=== PATIENT | female | born 1990 | race Caucasian/White ===

== ENCOUNTER 2019-05-13 16:22 | Outpatient (CLI) | payer BC, MEDICAID, SELFPAY ==
[2019-05-13 17:39] LABS: HIV 1/2 Ab P24 Ag Result Negative (Negative)
== END 2019-05-13 16:23 | disposition home or self-care (01) ==
PROVIDERS: PCP Family Medicine; Visit Provider Physician Assistant
DX: Z11.4 Encounter for screening for human immunodeficiency virus [HIV] (principal)
CPT/HCPCS: 36415; 86703; G0432

== ENCOUNTER 2020-06-08 14:39 | Outpatient (CLI) | payer BC, MEDICAID, SELFPAY ==
[2020-06-08 16:26] LABS: Free T4 Free Thyroxine 1.34 ng/mL (0.78-2.19)
== END 2020-06-08 14:40 | disposition home or self-care (01) ==
PROVIDERS: PCP Family Medicine; Visit Provider Physician Assistant
DX: E03.9 Hypothyroidism, unspecified (principal)
CPT/HCPCS: 36415; 84439; 84443

== ENCOUNTER → 2021-04-27 07:42 | Outpatient (CLI) | payer BC, MEDICAID, SELFPAY ==
[2021-04-27 18:37] LABS: Influenza A QL RT-PCR Negative (Negative); Influenza B QL RT-PCR Negative (Negative); SARS-CoV-2 RNA PCR Negative
== END ==
PROVIDERS: PCP Family Medicine; Visit Provider Physician Assistant
DX: R50.9 Fever, unspecified (principal); Z20.822 Contact with and (suspected) exposure to COVID-19
CPT/HCPCS: 87502; 87804; C9803; U0003; U0005

== ENCOUNTER 2022-09-26 15:39 | Outpatient (CLI) | payer OTHER, MEDICAID, SELFPAY ==
--- NOTE | ~2022-09-26 | XR_ITS ---
EXAM: XR femur RT min 2V, XR femur LT min 2V DATE: 09/26/2022 16:04 (accession [id number]), 09/26/2022 16:06 (accession [id number]) HISTORY: W19.XXXA - Unspecified fall, initial encounter . COMPARISON: None available. FINDINGS: Normal mineralization. No fracture or dislocation. No lytic or blastic lesion. Osteitis pu bis. Mild bilateral hip osteoarthritis. No erosion or periosteal change. Soft tissues within normal l imits. IMPRESSION: No acute osseous finding in the right or left femur. Reviewed, dictated and finalized at location K. IMPRESSION: No acute osseous finding in the right or left femur.
--- NOTE | ~2022-09-26 | XR_ITS ---
EXAM: XR knee LT 3V DATE: 09/26/2022 16:05 HISTORY: W19.XXXA - Unspecified fall, initial encounter . COMPARISON: None available. FINDINGS: Normal mineralization. No fracture or dislocation. No lytic or blastic lesion. Mild left k nee osteoarthritis. No erosion or periosteal change. Soft tissues within normal limits. IMPRESSION: No acute osseous finding in the left knee. Reviewed, dictated and finalized at location K.
--- NOTE | ~2022-09-26 | XR_ITS ---
XR sacrum coccyx min 2V DATE: 09/26/2022 16:04 INDICATION: Fall. Sacral injury, pain TECHNIQUE: AP, angled AP and lateral views COMPARISON: None FINDINGS: The pubic symphysis and sacral iliac joints are intact. No sacral or coccygeal fracture or bone destruction is detected. Included L4-5 and L5-S1 interspaces are well preserved. IMPRESSION: Negative Reviewed, dictated and finalized at location A. IMPRESSION: Negative
--- NOTE | ~2022-09-26 | XR_ITS ---
XR knee RT 3V 09/26/2022 16:05 INDICATION: Right knee pain PROCEDURE: 3 views right knee COMPARISON: No prior studies for comparison. FINDINGS: Fracture, dislocation or subluxation is not identified. No significant joint effusion. The soft tissues appear within normal limits. No foreign bodies are identified. IMPRESSION: 1: NO ACUTE BONE OR JOINT ABNORMALITY IDENTIFIED. Reviewed, dictated and finalized at location []
== END 2022-09-26 15:40 | disposition home or self-care (01) ==
LOC: ANHIMG 15:41
PROVIDERS: PCP Family Medicine; Visit Provider Family Medicine
DX: R52 Pain, unspecified (principal)
CPT/HCPCS: 72220; 73552; 73562

== ENCOUNTER 2022-09-27 18:05 | Inpatient (IN) | payer OTHER, MEDICAID, SELFPAY ==
[2022-09-27] VITALS (19 sets, daily range): BP systolic 125–146; BP diastolic 87–104; PULSE 77–98; RESP 14–20; TEMP 36.7–36.9; O2SAT 96–98; BMI 26.7
--- NOTE | ~2022-09-27 | CT_ITS ---
EXAMINATION: CTA brain carotid DATE: 09/27/2022 20:34 CDT INDICATION: Left facial droop and arm weakness. TECHNIQUE: Computed tomographic angiography (CTA) of the head was performed without and with 100 mL O mnipaque-350 intravenous contrast. CTA of the neck was performed with intravenous contrast. The dose- length product was 1455.69 mGy-cm. Maximum intensity projection and volume rendered 3D-reconstruction s were created by the technologist on a separate workstation. COMPARISON: None. FINDINGS: HEAD CTA: There is moderate-severe stenosis at the origin of the right middle cerebral artery. The an terior, left middle and posterior cerebral arteries are symmetric. There are ill-defined areas of lin graphic hypodensity involving the right basal ganglia including the caudate nucleus and lentiform nuc leus as well as subtle ill-defined areas of decreased density in the right posterior parietal lobe, s uspicious for acute/subacute infarction. No significant mass effect or hemorrhage. Paranasal sinuses and mastoids are pneumatized. Normal brain parenchymal volume for age. No midline shift. NECK CTA: The vertebral arteries are normal in course and caliber. The vertebral arteries are codomin ant. Study somewhat limited due to motion. Mildly prominent submandibular lymph nodes are likely reac tive.% There is 0% stenosis of the proximal right internal carotid artery relative to normal distal artery l umen diameter (NASCET criteria). There is 0%stenosis of the proximal left internal carotid artery rel ative to normal distal artery lumen diameter. IMPRESSION: 1: Geographic areas of hypodensity involving the right basal ganglia and right posterior parietal lo bes, suspicious for acute or subacute infarctions. No significant mass effect or associated hemorrhag e. 2: Moderate-severe stenosis at the origin of the right middle cerebral artery. Dr. Jackson Kennedy discussed with Dr. Juli Palmer MD at 09/27/2022 20:41 CDT. Reviewed, dictated and finalized at location A. IMPRESSION: 1: Geographic areas of hypodensity involving the right basal ganglia and right posterior parietal lobes, suspicious for acute or subacute infarctions. No sig nificant mass effect or associated hemorrhage. 2: Moderate-severe stenosis at the origin of the right middle cerebral artery. Dr. Jackson Kennedy discussed with Dr. Juli Palmer MD at 09/27/2022 20:41 CDT.
--- NOTE | ~2022-09-27 | XR_ITS ---
XR chest 1V portable 09/27/2022 20:05 Indication: Left-sided weakness. Procedure: AP portable chest Comparison: 11/18/2012 Findings: Shallow inspiration with crowding of the pulmonary vessels. No focal pneumonia, pleural eff usion or pneumothorax. No acute osseous abnormality. Impression: 1: No acute cardiopulmonary disease. Reviewed, dictated and finalized at location A. Impression: 1: No acute cardiopulmonary disease.
--- NOTE | ~2022-09-27 | MR_ITS ---
EXAMINATION: MR brain/brain stem wo/w con DATE: 09/28/2022 11:52 INDICATION: Subacute CVA TECHNIQUE: Magnetic resonance imaging (MRI) of the brain and brainstem was performed without intraven ous contrast. Sequences included sagittal and axial T1-weighted SE, axial diffusion-weighted FS SE, a xial T2*-weighted GRE, axial T2-weighted FLAIR Propeller, and axial T2-weighted Propeller. Apparent d iffusion coefficient (ADC) maps were created. COMPARISON: CTA brain/carotid dated 09/27/2037. FINDINGS: There is diffusion restriction compatible with acute/subacute infarction involving the righ t caudate nucleus and lentiform nucleus. No evidence for intracranial hemorrhage. Orbits are symmetri c without disconjugate gaze. No ventriculomegaly or midline shift. Paranasal sinuses are unremarkable . There are chronic infarctions involving the right parietal lobe posteriorly. No significant diffusi on restriction is seen to suggest these areas of infarction or acute or subacute. No gradient suscept ibility effect. No abnormal contrast enhancement. IMPRESSION: 1. Acute/subacute infarctions of the right caudate and lentiform nuclei. 2: Chronic multifocal infarctions of the right parietal lobe. Reviewed, dictated and finalized at location A.
--- NOTE | 2022-09-27 19:15 | ECG_ITS ---
Measurements Intervals [place] Rate: 83 P: 56 VT: 156 QRS: 69 QRSD: 75 T: 34 QT: 367 QTc: 433 Interpretive Statements SINUS RHYTHM POSSIBLE LEFT ATRIAL ENLARGEMENT [-0.1mV P-WAVE IN V1/V2] ABNORMAL ECG NO PREVIOUS ECG AVAILABLE FOR COMPARISON Electronically Signed On 09-28-2022 9:11:31 CDT by Jonathan Quinteros M.D.
--- NOTE | 2022-09-27 19:17 | ED.NEUROSD ---
HPI - Neuro Symptoms/Deficit General Chief Complaint: Neuro Symptoms/Deficit Stated Complaint: left sided weakness/numbness since Thursday? Time Seen by Provider: 09/27/22 19:04 History of Present Illness HPI Narrative: Sister visited today and noticed patient was not running to meet/hug her like usual, then noticed her face was droopy and she wasn't able to move her left arm (would use her right arm to move her left). Mom states she thinks these symptoms started on Thursday. Other than this, patient not complaining of any pain or any complaints, other than she did have some possible left knee pain that she got x-rays for yesterday, but is not complaining of that now. Related Data Home Medications Medication Instructions Recorded Confirmed neomycin 3.5 mg/g-polymyxin B 1 applic EACH EYE Q6H 06/18/21 03/21/22 10,000 unit/g-dexameth 0.1 % eye oint Allergies Allergy/AdvReac Type Severity Reaction Status Date / Time tobramycin Allergy Mild Rash Verified 09/27/22 18:06 cefixime Allergy Unknown Unknown Verified 09/27/22 18:06 Review of Systems Review of Systems: Patient denies complaints including pain anywhere, recent fevers PMFSH Past Medical History Medical History Down syndrome Duodenal atresia (~1991) Hypothyroidism Skin lesion of right lower extremity Surgical History Surgical History History of placement of ear tubes (~1995) Hx of tonsillectomy (~1997) Family History Family History Mother Patient's mother is in good health Social History Social History Smoking status: Never smoker Second hand tobacco smoke exposure: No Alcohol intake: never Substance use: never Substance use type: does not use Lack of Transportation: No Lack of Food: Never True Current Housing: I Have Housing Concerned About Future Housing: No Difficulty Paying Gas/Electric Bills: No Difficulty Paying for Meds: No Currently Unemployed: Decline to Answer Education: High School Diploma/GED Difficulty w/ Childcare or Family Care: No Living arrangements: with family Gender identity (if verbalized by the patient): Female Spiritual care concerns: No Agree to blood products: Yes Exam Narrative: EXAMINATION OF ORGAN SYSTEMS/BODY AREAS: Constitutional: Vital signs per nursing GENERAL:[No acute distress, non-toxic appearing.] Sitting comfortably in bed. HEAD: Normal with no signs of head trauma. EYES: EOMI, PERRL, left eye is red ENT: Left-sided facial droop; forehead spared LUNGS: Nonlabored breathing. HEART: [Regular rate and rhythm] ABD: [Soft], patient states a little when asked if painful on palpation but does not wince at all EXT: Able to move left arm against gravity but noticeably weak compared to right. Normal movement bilateral lower extremities, painless flexion at knee SKIN: [No rashes or lesions.] NEURO: [Alert and oriented x 3. No gross focal sensory or strength deficits.] PSYCH: Normal affect Course Vital Signs Vital signs: Vital Signs Temperature 98.1 F 09/27/22 18:07 Pulse Rate 96 09/27/22 18:07 Respiratory Rate 18 09/27/22 18:07 Blood Pressure 132/87 09/27/22 18:07 Pulse Oximetry 96 09/27/22 18:07 Oxygen Delivery Room Air 09/27/22 18:07 Temperature 98.1 F 09/27/22 18:07 Pulse Rate 96 09/27/22 18:07 Respiratory Rate 18 09/27/22 18:07 Blood Pressure 132/87 09/27/22 18:07 Pulse Oximetry 96 09/27/22 18:07 Oxygen Delivery Room Air 09/27/22 18:07 MDM - Neuro Symptoms/Deficit MDM Narrative Medical decision making narrative: 32-year-old female with history of Down syndrome presents after sister noted facial droop and arm weakness, mother states this has been ongoing for days. Patient denies any complaints; on exam has L
[2022-09-27 19:38] LABS: Basophils Absolute Auto 0.1 K/mm3 (0.0-0.1); Eosinophils Percent Auto 0.1 % (0-4.4); Hemoglobin 17.2 g/dL (12.0-15.0); Immature Granulocyte Absolute 0.05 K/mm3 (0.00-0.031); Immature Granulocyte Percent A 0.5 % (0-0.5); Lymphocytes Absolute Auto 1.77 K/mm3 (0.9-3.2); Lymphocytes Percent Auto 17.2 % (18.3-44.2); Mean Corpuscular HGB Conc 33.7 g/dl (32-36); Mean Corpuscular Hemoglobin 31.9 pg (26-34); Mean Corpuscular Volume 94.6 fl (80-100); Mean Platelet Volume 9.1 fl (7.4-10.4); Monocytes Absolute Auto 0.7 K/mm3 (0.1-0.6); Monocytes Percent Auto 6.3 % (2.6-8.5); Neutrophils Absolute Auto 7.7 K/mm3 (1.3-6.7); Neutrophils Percent Auto 74.9 % (45.5-73.1); Platelet Count Result 437 k/mm3 (150-375); Red Blood Count 5.39 M/mm3 (4.2-5.4); Red Cell Distribution Width 13.9 % (11.5-14.5); White Blood Count 10.3 K/mm3 (4.5-10.0)
[2022-09-27 19:39] LABS: Appearance Urine Clear (Clear); Bacteria Urine None Seen /hpf; Bilirubin Urine Negative (Negative); Blood Urine Negative (Negative); Color Urine Dark Yellow (Yellow); Glucose Urine UA Negative (Negative); Ketones Urine 4+ mg/dL (Negative); Leukocyte Esterase Ur Trace LEU/UL (Negative); Nitrate Urine Negative (Negative); Non Pathogenic Casts 0-2; Protein Urine 2+ mg/dL (Negative); RBC Urine 0-2 /hpf (0-2); Squamous Epithelial Cell Urine Occasional /hpf (Few); pH Urine 5.5 (5.0-9.0)
[2022-09-27 19:40] LABS: Add Urine Microscopic? YES
[2022-09-27 19:50] LABS: Barbiturate Screen Urine Negative (Negative)
[2022-09-27 19:50] LABS: Partial Thromboplastin Time 26.8 SECONDS (22.3-36.8); Prothrombin Time 13.9 Seconds (11.1-14.7)
[2022-09-27 19:53] LABS: Amphetamine Screen Urine Negative (Negative); Cannabinoid Screen Urine Negative (Negative); Cocaine Screen Urine Negative (Negative); Methadone Screen Urine Negative (Negative); Opiate Screen Urine Negative (Negative); Phencyclidine Screen Urine Negative (Negative)
[2022-09-27 19:55] LABS: Alanine Aminotransferase 40 U/L (6-35); Albumin Level 4.9 g/dL (3.5-5.1); Alkaline Phosphatase 116 U/L (38-126); Anion Gap 19 mmol/L (8-16); Aspartate Amino Transferase 38 U/L (14-36); Bilirubin,Total 0.9 mg/dL (0.2-1.3); Blood Urea Nitrogen 16 mg/dL (7-17); Calcium 9.6 mg/dL (8.4-10.2); Carbon Dioxide 14 mmol/L (22-30); Chloride 105 mmol/L (98-107); Estimated CRCL calculation 75 ml/min; Estimated Glomerular Filt Rate > 60; Ethanol < 10 mg/dL (<10); Glucose 72 mg/dL (65-110); Potassium 4.2 mmol/L (3.4-5.0); Sodium 138 mmol/L (137-145)
[2022-09-27 20:06] LABS: Troponin I < 0.012 ng/mL (0.000-0.034)
[2022-09-27 20:18] LABS: Benzodiazepines Screen Urine Negative (Negative)
[2022-09-27] MEDS: LACTATED RINGERS 1,000 ML 999 ML IV CONT (20:39)
--- NOTE | 2022-09-27 22:32 | PC.NURSE ---
family to bring in full medication list tomorrow takes several vitamin unknown strengthen
--- NOTE | 2022-09-27 22:38 | PM.IMHP ---
H&P: HPI History of Present Illness Date/Time: 09/27/22 22:30 Chief Complaint: Left-sided weakness. Narrative: This is a pleasant 32-year-old female with Down syndrome and hypothyroidism who presented to the emergency department via private vehicle from home for evaluation of left-sided weakness. She is a fair historian and her mother and sister provide additional history, with the patient's permission. She has been complaining of her left leg and knee feeling weird since Thursday and she had outpatient radiographs done yesterday of her lower extremities which did not show any acute findings. Today her sister came to visit and she thought it was strange at the patient did not run in hold her like she would normally. Instead she seemed to be walking slowly and sister noticed that the left side of her face was drooping. Mother did not notice the drooping of the face but she did notice that the patient had difficulties using her left arm on Thursday however she thought she was trying to imitate her. Vital signs were stable on arrival to the ED. pertinent labs include a WBC count of 10.3, hemoglobin 17.2, hematocrit 51%, sodium 138, potassium 4.2, carbon dioxide 14, anion gap 19, BUN 16, creatinine 0.80, AST 38, ALT 40, total protein 9.. Urine was positive for 2+ protein and 4+ ketones. Urine drug screen was negative. CTA of the head and neck per [facility] showed findings concerning for subacute infarcts with occlusion of the right MCA though she had collateral vessels. ED physician spoke with Dr. Pack who recommends putting patient in the hospital for brain MRI as she has had symptoms since Thursday. At the time of my evaluation the patient is sitting up and watching television while eating a sandwich. She mentions that she bit her tongue once while eating a couple of days ago and that she did not really eat much last couple of days because of that however she is feeling better in that regard. She denies vertigo, paresthesias, visual changes, difficulty swallowing, difficulty speaking, chest pain, palpitations, sensations of racing heart. No recent cold or flu symptoms. Review of Systems Review of Systems: Twelve systems were reviewed and are negative except for as per HPI. [facility] Past Medical History Medical History Down syndrome Duodenal atresia (~1991) Hypothyroidism Surgical History Surgical History (Updated 09/27/22 @ 22:41 by Yeimy Willis PA-C) History of placement of ear tubes (1995) History of tonsillectomy (1997) Family History Family History Mother Patient's mother is in good health Social History Social History (Updated 09/27/22 @ 22:42 by Yeimy Willis PA-C) Social History: Surrogate medical decision maker: Chaya and Lemuel Cabrera, parents. Code status: Full code. Smoking status: Never smoker Second hand tobacco smoke exposure: No Alcohol intake: never Substance use: never Substance use type: does not use Lack of Transportation: No Lack of Food: Never True Current Housing: I Have Housing Concerned About Future Housing: No Difficulty Paying Gas/Electric Bills: No Difficulty Paying for Meds: No Currently Unemployed: Decline to Answer Education: High School Diploma/GED Difficulty w/ Childcare or Family Care: No Additional living arrangements comments: Lives with family in [place]. Additional occupation/education comments: Disabled. Spiritual care concerns: No Agree to blood products: Yes Meds Home Medications and Allergies Home Medications Medication Instructions Recorded Confirmed Type neomycin 3.5 mg/g-polymyxin B 1 applic EACH EYE Q6H 06/18/21 03/21/22 History 10,000 unit/g-dexameth 0.1 % eye oint levothyroxine 75 mcg tablet 75 mcg PO DAILY #90 tabs 09/14/21 03/21/22 Rx Allergies Allergy/AdvReac Type Severity Reaction Status Date
[2022-09-27] MEDS: CLOPIDOGREL BISULFATE 75 MG TABLET PO (23:23)
[2022-09-27] MEDS: DEXTROSE 5%/0.9% SOD CHL 1,000 ML 100 ML IV CONT (23:23)
[2022-09-27] MEDS: ATORVASTATIN 40 MG TABLET PO (23:23)
[2022-09-27 23:46] LABS: Anion Gap 10 mmol/L (8-16); Blood Urea Nitrogen 16 mg/dL (7-17); Calcium 8.8 mg/dL (8.4-10.2); Carbon Dioxide 21 mmol/L (22-30); Chloride 105 mmol/L (98-107); Cholesterol 229 mg/dL (0-200); Estimated CRCL calculation 74 ml/min; Estimated Glomerular Filt Rate > 60; Glucose 144 mg/dL (65-110); HDL Direct 23 mg/dL; Magnesium 1.8 mg/dL (1.6-2.3); Phosphorus 3.3 mg/dL (2.5-4.5); Sodium 136 mmol/L (137-145); Triglycerides 91 mg/dL (<150)
[2022-09-27 23:51] LABS: Beta-Hydroxybutyrate/Acetoacetate 1.05 mmol/L (0.02-0.27)
[2022-09-27 23:56] LABS: LDL Cholesterol Direct 189 mg/dL
[2022-09-28 00:19] LABS: Thyroid Stimulating Hormone Reflex 0.698 uIU/mL (0.465-4.68)
--- NOTE | 2022-09-28 04:53 | PC.NURSE ---
This patient, Danette Cabrera, was admitted to [address] [facility] Surg Room 323-02. Patient/family oriented to hospital policies and general routines including ID bracelet, bed and alarms, visiting hours, pain management, procedures, bathroom and other care routines, personal items, smoking policy, room service/diet, and visiting hours. Information on how to activate the Rapid Response Team has been discussed. Patient/Family are encouraged to report perceived risks to care and to ask questions if they do not understand what they are told or what they should do. pt arrived at [id number]
[2022-09-28 06:00] VITALS: BP 140/87; PULSE 78; RESP 16; TEMP 36.6; O2SAT 95
[2022-09-28 06:40] LABS: Hematocrit 42.3 % (37.0-47.0); Hemoglobin 14.3 g/dL (12.0-15.0); Mean Corpuscular HGB Conc 33.8 g/dl (32-36); Mean Corpuscular Hemoglobin 31.8 pg (26-34); Mean Platelet Volume 9.2 fl (7.4-10.4); Platelet Count Result 366 k/mm3 (150-375); Red Cell Distribution Width 13.7 % (11.5-14.5); White Blood Count 9.5 K/mm3 (4.5-10.0)
[2022-09-28 06:57] LABS: Anion Gap 7 mmol/L (8-16); Blood Urea Nitrogen 15 mg/dL (7-17); Calcium 8.1 mg/dL (8.4-10.2); Carbon Dioxide 20 mmol/L (22-30); Chloride 110 mmol/L (98-107); Estimated CRCL calculation 84 ml/min; Estimated Glomerular Filt Rate > 60; Glucose 116 mg/dL (65-110); Potassium 3.7 mmol/L (3.4-5.0); Sodium 137 mmol/L (137-145)
[2022-09-28 08:00] VITALS: O2SAT 96
[2022-09-28 08:09] VITALS: O2SAT 96
[2022-09-28] MEDS: ASPIRIN 81 MG CHEWABLE TABLET PO (08:42)
--- NOTE | 2022-09-28 12:18 | PCPTNOTE ---
On 09/28/22, the student, [Pinky Hart], provided care and completed [facility] documentation on this patient. I have reviewed the student's documentation and agree with the findings.
--- NOTE | 2022-09-28 12:56 | WPDNEURCNPN ---
Assessment and Plan Assessment and plan (1) Stenosis of right middle cerebral artery: Code(s): I66.01 - Occlusion and stenosis of right middle cerebral artery Status: Acute (2) Cerebrovascular accident: Code(s): I63.9 - Cerebral infarction, unspecified Status: Acute (3) Down syndrome: Code(s): Q90.9 - Down syndrome, unspecified Status: Acute Plan 1. Right hemispheric the stroke documented by CTA though MRI is pending. Stroke involves the basal ganglia and right posterior parietal lobe in addition she has been noted to have moderate to severe stenosis of the origin of the right middle cerebral artery. Patient is receiving aspirin 81 mg daily and Plavix 75 mg daily in addition to atorvastatin 40 mg daily will obtain the surface echocardiogram before any further steps are taken. Consult date: 09/28/22 HPI: Danette Cabrera is a 32 year old femaleAdmitted to the hospital with the complaints of left-sided weakness along with the numbness since Thursday. Her sister visited today she came to the emergency room and noted that she was not running to meet and hug her like usual and she also noted her face was droopy and she was unable to move her left upper extremity and were using right upper extremity more than the left the symptoms probably started on Thursday but otherwise she was not complaining of any problem he did have some left knee pain for which x-rays were taken day before visit to the emergency room. But she was not complaining of any pain in the knee as well . Is allergic to tobramycin and cefixime. He carries the diagnosis of Down syndrome with duodenal atresia and hypothyroidism and has undergone local surgery for the placement of the ear tubes in 1995 in addition to tonsillectomy in 1997. She does not drink does not smoke initial exam in the Emergency Room documented left upper extremity weakness compared to the right side vital signs were normal. Evaluation documented hemoglobin of 17.2 she had the CTA which documented hypodensities in the right caudate head and basal ganglia along with the occlusion of the right middle cerebral artery with collateral vessels EKG did not reveal any atrial fibrillation CBC was normal except hemoglobin only 10.3 and WBC 17.2 with platelet 437 drug screen was negative Review of Systems Review of Systems: All systems reviewed & are unremarkable except as noted in HPI and below PMFSH Past Medical History Medical History Down syndrome Duodenal atresia (~1991) Hypothyroidism Surgical History Surgical History (Updated 09/27/22 @ 22:41 by Yeimy Willis PA-C) History of placement of ear tubes (1995) History of tonsillectomy (1997) Family History Family History Mother Patient's mother is in good health Social History Social History (Updated 09/27/22 @ 22:42 by Yeimy Willis PA-C) Social History: Surrogate medical decision maker: Chaya and Lemuel Cabrera, parents. Code status: Full code. Smoking status: Never smoker Second hand tobacco smoke exposure: No Alcohol intake: never Substance use: never Substance use type: does not use Lack of Transportation: No Lack of Food: Never True Current Housing: I Have Housing Concerned About Future Housing: No Difficulty Paying Gas/Electric Bills: No Difficulty Paying for Meds: No Currently Unemployed: Decline to Answer Education: High School Diploma/GED Difficulty w/ Childcare or Family Care: No Additional living arrangements comments: Lives with family in [place]. Additional occupation/education comments: Disabled. Spiritual care concerns: No Agree to blood products: Yes Meds Home Medications and Allergies Home Medications Medication Instructions Recorded Confirmed Type levothyroxine 75 mcg tablet 75 mcg PO DAILY #90 tabs 09/14/21
--- NOTE | 2022-09-28 13:22 | PCSTNOTE ---
Bedside swallowing evaluation. Patient's parents and sister present at bedside. Patient positioned upright in bed with head of bed elevated. Oral peripheral examination performed, patient presents with mild left sided decreased lingual and labial range of motion, strength, and coordination. Following simple commands with extra time. Trials of thin liquids, pureed foods by spoon and cup were within normal limits. Patient required extra time to chew solid food. Patient reports that she has decreased sensation in left buccal region. Compensatory strategies trialed included: position upright in bed or in chair, present food and liquid from left side, small bites and sips, decrease distractions, and no straws. Recommended food texture is soft and bite sized, and liquid consistency is thin. No further speech therapy is recommended for this patient. Swallowing precaution recommendations posted in medical chart. Please note that silent aspiration cannot be ruled out at bedside and can only be evaluated with a modified barium swallow study. Thank you for the referral of this patient.
[2022-09-28 14:00] VITALS: BP 113/79; PULSE 72; RESP 16; TEMP 36.4; O2SAT 98
--- NOTE | 2022-09-28 15:33 | PM.IMPN ---
Progress Note: A&P Assessment and Plan (1) Cerebrovascular accident: Code(s): I63.9 - Cerebral infarction, unspecified Status: Acute Assessment and Plan: Appreciate neurology consultation, follow-up echo and MRI (2) Stenosis of right middle cerebral artery: Code(s): I66.01 - Occlusion and stenosis of right middle cerebral artery Status: Acute Assessment and Plan: Appreciate neurology consultation and management (3) Ketosis: Code(s): E88.89 - Other specified metabolic disorders Status: Acute Assessment and Plan: Resolved (4) Dehydration: Code(s): E86.0 - Dehydration Status: Acute Assessment and Plan: Resolved Plan Comorbidity: Down syndrome DVT prophylaxis with SCDs GI prophylaxis not indicated Code status full code Subjective Date/time seen: 09/28/22 15:33 Interval history: Patient is sleeping, discussed with family at bedside. No complaints. Unchanged from admission. Still with facial droop and UE and LE weakness/sensory changes. No overnight events. No fevers, chills, NVD, CP, SOB. Review of Systems Review of Systems: ROS unobtainable: Yes unobtainable due to mental status Exam Narrative: General: No acute distress, sleeping HEENT: Atraumatic, normocephalic, mucous membranes moist CV: Regular rate and rhythm, S1, S2 Lungs: Clear to auscultation bilaterally, no rales or crackles noted, no wheezes, good air entry Abdomen: Soft, nontender, nondistended Extremities: Normal to inspection Skin: No rashes noted, no lesions or wounds seen Psych: Unable to assess Objective Data Vital Signs Vital Signs: Vital Signs - 24 hr 09/27/22 18:07 09/27/22 18:21 09/27/22 18:30 Temperature 98.1 F Pulse Rate 96 98 Respiratory Rate 18 19 Blood Pressure 132/87 Pulse Oximetry 96 Oxygen Delivery Room Air 09/27/22 18:45 09/27/22 19:01 09/27/22 19:02 Temperature Pulse Rate 95 90 Respiratory Rate 15 19 Blood Pressure 146/104 H Pulse Oximetry Oxygen Delivery 09/27/22 19:30 09/27/22 19:45 09/27/22 20:25 Temperature Pulse Rate 91 91 94 Respiratory Rate 19 15 Blood Pressure Pulse Oximetry Oxygen Delivery 09/27/22 20:30 09/27/22 20:45 09/27/22 21:01 Temperature Pulse Rate 84 77 84 Respiratory Rate 16 18 Blood Pressure 132/91 H Pulse Oximetry Oxygen Delivery 09/27/22 21:02 09/27/22 21:33 09/27/22 21:45 Temperature Pulse Rate 81 89 94 Respiratory Rate 17 15 14 Blood Pressure Pulse Oximetry Oxygen Delivery 09/27/22 22:00 09/27/22 22:01 09/27/22 22:46 Temperature 98.5 F Pulse Rate 87 86 87 Respiratory Rate 14 20 16 Blood Pressure 125/88 137/91 H Pulse Oximetry 98 Oxygen Delivery 09/28/22 06:00 09/28/22 08:10 09/28/22 08:24 Temperature 98 F Pulse Rate 78 Respiratory Rate 16 Blood Pressure 140/87 Pulse Oximetry 95 Oxygen Delivery Room Air Room Air 09/28/22 08:09 09/28/22 08:00 09/27/22 22:48 Temperature 98.5 F Pulse Rate 87 Respiratory Rate 16 Blood Pressure 137/91 H Pulse Oximetry 96 96 98 Oxygen Delivery Room Air Room Air Intake/Output Intake/Output: Intake & Output 09/25/22 09/26/22 09/27/22 09/28/22 23:59 23:59 23:59 23:59 Intake Total 1000 0 Output Total 200 Balance 1000 -200 Meds/Results Medications: Active Medications Generic Name Dose Route Start Last Admin Trade Name Freq PRN Reason Stop Dose Admin Acetaminophen 650 mg 09/27/22 22:55 Acetaminophen 325 Mg Tablet PO Q6H PRN Mild Pain (1-3) or Fever Aspirin 81 mg 09/28/22 08:00 09/28/22 08:42 Aspirin 81 Mg Chewable Tablet PO 81 mg DAILY@0800 DEON Administration Perflutren Lipid Microsphere 0 ml 09/27/22 22:55 Perflutren Lipid Microspheres 1.5 Ml Vial Diluted To 10 Ml Total Volume IV PUSH 09/29/22 22:57 ONCE PRN adequate visualization
[2022-09-28 20:00] VITALS: PULSE 68; RESP 18; O2SAT 97
[2022-09-28 20:40] VITALS: BP 135/86; PULSE 68; RESP 18; TEMP 36.3; O2SAT 97
--- NOTE | 2022-09-29 | ECHO_ITS ---
Patient Info Name: Danette Cabrera Age: 32 years : 1990 Gender: Female Ht: 60 in Wt: 137 lbs BSA: 1.64 m2 HR: 68 bpm BP: 118 / 87 mmHg Heart Rhythm: Sinus Rhythm Technical Quality: Fair Exam Date: 09/29/2022 2:01 PM Exam Location: [facility] Pulmonary Exam Room: 323 Patient Status: Inpatient Admit Date: 09/27/2022 Staff Ordering Physician: Yeimy Willis PA-C Head Host/Hostess: Lacy Camejo RDCS Attending Provider: Kennedy El MD Referring Physician: Alba KIM; Exam Type: CA echo doppler w bubble study Study Info Indications - CVA Complete two-dimensional, color flow and Doppler transthoracic echocardiogram is performed with agitated saline. Contrast/Agitated Saline Contrast/Ag. Saline: Agitated Saline Amount: 20.00 ml Administered By: Fransisca Ivy RDCS Existing IV Access: Yes IV Access Condition: patent with no signs of infiltration Summary 1. Unremarkable 2D/Doppler echocardiogram. 2. Saline contrast injection shows no evidence of intracardiac shunt. Left Ventricle Left ventricular chamber dimension is normal. Left ventricular systolic function is normal, estimated at 65-70%. The left ventricular diastolic function is normal. Right Ventricle Right ventricular chamber dimension is normal. Left Atria Left atrial chamber dimension is normal. Right Atria Right atrial chamber dimension is normal. Atrial Septum Intact interatrial septum visualized by agitated saline imaging. Aortic Valve The aortic valve is normal. Pulmonic Valve The pulmonic valve is normal. Mitral Valve The mitral valve has normal leaflets. Tricuspid Valve The tricuspid valve leaflets are normal. Pericardium/Pleural The pericardium appears normal. Aorta The aortic root size at the sinus of Valsalva is normal. Left Ventricular Outflow Tract Name Value Normal LVOT 2D LVOT Diameter 2.0 cm LVOT Doppler LVOT Peak Gradient 5 mmHg LVOT Mean Gradient 3 mmHg LVOT VTI 21 cm LVOT VTI/AV VTI Ratio 1.1 LVOT Stroke Volume 65 ml LVOT CO 13.7 l/min LVOT CI 8.3 l/min/m2 Pulmonic Valve Name Value Normal RVOT Doppler RVOT Peak Gradient 3 mmHg PV Doppler PV Peak Gradient 4 mmHg Mitral Valve Name Value Normal MV Doppler MV Decel [place] 452 cm/s2 MV PHT 51 ms
[2022-09-29] MEDS: LEVOTHYROXINE SODIUM 75 MCG TABLET PO (05:47)
[2022-09-29 06:00] VITALS: BP 118/87; PULSE 60; RESP 18; TEMP 36.5; O2SAT 99
[2022-09-29] MEDS: ASPIRIN 81 MG CHEWABLE TABLET PO (08:18)
[2022-09-29] MEDS: ASCORBIC ACID 500 MG TABLET PO (08:18)
[2022-09-29] MEDS: CYANOCOBALAMIN 1,000 MCG TABLET 1000 MCG PO (08:18)
[2022-09-29] MEDS: CHOLECALCIFEROL 1,000 UNITS TABLET 1000 UNITS PO (08:19)
[2022-09-29] MEDS: LORATADINE 10 MG TABLET PO (08:19)
[2022-09-29 09:05] VITALS: O2SAT 97
--- NOTE | 2022-09-29 09:59 | PCPTNOTE ---
On 09/29/22, the student, LYDIA Galvan, provided care and completed [facility] documentation on this patient. I have reviewed the student's documentation and agree with the findings.
--- NOTE | 2022-09-29 11:06 | WPDNEUROPN ---
Progress Note: A&P Assessment and Plan (1) Cerebrovascular accident: Code(s): I63.9 - Cerebral infarction, unspecified Status: Acute (2) Stenosis of right middle cerebral artery: Code(s): I66.01 - Occlusion and stenosis of right middle cerebral artery Status: Acute (3) Down syndrome: Code(s): Q90.9 - Down syndrome, unspecified Status: Acute (4) Hyperlipidemia: Code(s): E78.5 - Hyperlipidemia, unspecified Status: Acute Plan Ms. Cabrera is a 32 year old female with a history of Down's syndrome presenting due to stroke. Patient initially admitted for complains of left sided weakness and numbness. She had an MRI brain which showed R basal ganglia nfarct and CTA brain/carotid showed severe stenosis of the at the origin of the R MCA. Etiology of stroke is likely vessel to vessel embolism from origin of R MCA to R lenticulostriate arteries. However given history of Down's syndrome, will have to evaluate for cardioembolic etiologies as well as further evaluation with angiography since there is an association with moyamoya syndrome. Additionally, there is a strong family history of miscarriages so will need to also evaluate for hypercoagulability. - Aspirin 81mg daily - Plavix 75mg daily x 3 months - Continue Lipitor 40mg daily - Surface echocardiogram is pending - Will likely need outpatient follow-up with neurointerventionalist for cerebral angiogram - Will check hypercoagulable panel Subjective Date/time seen: 09/29/22 11:06 Interval history: Ms. Cabrera is a 32 year old female with a history of Down's syndrome presenting due to stroke. Patient initially admitted for complains of left sided weakness and numbness. She had an MRI brain which showed R MCA territory infarct and CTA brain/carotid showed severe stenosis of the at the origin of the R MCA. EKG showed sinus rhythm. Her LDL from this admission is 189. Last A1c from March 2022 is 5.3. She has been started on Aspirin 81mg daily, Plavix 75mg daily x 3 months, and Lipitor 40mg daily. Surface echocardiogram is pending. Sister at bedside. Patient had a PFO vs ASD at young age that spontaneously closed. There is family history of miscarriage in patient's two sisters, mother, and maternal aunt. No known history of clotting disorders. Review of Systems Review of Systems: ROS unobtainable: Yes unobtainable due to medical condition Exam Const: General: comfortable and no acute distress Eyes: Pupils: Equal, round and reactive pupils present EOM: EOMs intact bilaterally Resp: Effort & Inspection: normal respiratory effort Neuro: Other: Pupils equal and reactive bilaterally, EOMI, left facial droop. RUE/RLE 5/5. LUE 2/5, LLE 2/5. Following commands, speech is fluent but somewhat difficult to understand. Gait deferred. Extrem: General: normal to inspection Psych: Mental Status: mental status grossly normal Objective Data Vital Signs Vital Signs: Vital Signs - 24 hr 09/28/22 14:00 09/28/22 20:40 09/28/22 20:00 Temperature 36.4 C 36.3 C L Pulse Rate 72 68 68 Respiratory Rate 16 18 18 Blood Pressure 113/79 135/86 Pulse Oximetry 98 97 97 Oxygen Delivery Room Air 09/29/22 06:00 09/29/22 09:05 Temperature 36.5 C Pulse Rate 60 Respiratory Rate 18 Blood Pressure 118/87 Pulse Oximetry 99 97 Oxygen Delivery Room Air Intake/Output Intake/Output: Intake & Output 09/26/22 09/27/22 09/28/22 09/29/22 23:59 23:59 23:59 23:59 Intake Total 1000 240 290 Output Total 600 850 Balance 1000 -360 -560 Meds/Results Medications: Active Medications Generic Name Dose Route Start Last Admin Trade Name Freq PRN Reason Stop Dose Admin Acetaminophen 650 mg 09/27/22 22:55 Acetaminophen 325 Mg Tablet PO Q6H PRN Mild Pain (1-3) or Fever Ascorbic Acid 500 mg 09/29/22 09:00 09/29/22 08:18 Ascorbic Acid 500 Mg Tablet PO 500 mg DAILY DEON Administration Aspirin 81 m
--- NOTE | 2022-09-29 13:54 | PM.IMPN ---
Progress Note: A&P Assessment and Plan (1) Cerebrovascular accident: Code(s): I63.9 - Cerebral infarction, unspecified Status: Acute Assessment and Plan: Appreciate neurology consultation, follow-up echo and MRI Hypercoagulable workup pending (2) Stenosis of right middle cerebral artery: Code(s): I66.01 - Occlusion and stenosis of right middle cerebral artery Status: Acute Assessment and Plan: Appreciate neurology consultation and management (3) Ketosis: Code(s): E88.89 - Other specified metabolic disorders Status: Acute Assessment and Plan: Resolved (4) Dehydration: Code(s): E86.0 - Dehydration Status: Acute Assessment and Plan: Resolved Plan Comorbidity: Down syndrome DVT prophylaxis with SCDs GI prophylaxis not indicated Code status full code Subjective Date/time seen: 09/29/22 13:54 Interval history: Patient is sleeping, discussed with family at bedside. No complaints. Unchanged from admission. Still with facial droop and UE and LE weakness/sensory changes. No changes today. Family states she is still ate baseline mentation with unchanged neuro deficits. No overnight events. No fevers, chills, NVD, CP, SOB. Review of Systems Review of Systems: 12 point review of systems was assessed and was negative except as noted in the HPI Exam Narrative: General: No acute distress, sleeping HEENT: Atraumatic, normocephalic, mucous membranes moist CV: Regular rate and rhythm, S1, S2 Lungs: Clear to auscultation bilaterally, no rales or crackles noted, no wheezes, good air entry Abdomen: Soft, nontender, nondistended Extremities: Normal to inspection Skin: No rashes noted, no lesions or wounds seen Psych: Unable to assess Objective Data Vital Signs Vital Signs: Vital Signs - 24 hr 09/28/22 14:00 09/28/22 20:40 09/28/22 20:00 Temperature 97.6 F 97.4 F L Pulse Rate 72 68 68 Respiratory Rate 16 18 18 Blood Pressure 113/79 135/86 Pulse Oximetry 98 97 97 Oxygen Delivery Room Air 09/29/22 06:00 09/29/22 09:05 Temperature 97.7 F Pulse Rate 60 Respiratory Rate 18 Blood Pressure 118/87 Pulse Oximetry 99 97 Oxygen Delivery Room Air Intake/Output Intake/Output: Intake & Output 09/26/22 09/27/22 09/28/2223 23:59 23:59 23:59 23:59 Intake Total 1000 240 290 Output Total 600 850 Balance 1000 -360 -560 Meds/Results Medications: Active Medications Generic Name Dose Route Start Last Admin Trade Name Freq PRN Reason Stop Dose Admin Acetaminophen 650 mg 09/27/22 22:55 Acetaminophen 325 Mg Tablet PO Q6H PRN Mild Pain (1-3) or Fever Ascorbic Acid 500 mg 09/29/22 09:00 09/29/22 08:18 Ascorbic Acid 500 Mg Tablet PO 500 mg DAILY DEON Administration Aspirin 81 mg 09/28/22 08:00 09/29/22 08:18 Aspirin 81 Mg Chewable Tablet PO 81 mg DAILY@0800 DEON Administration Cyanocobalamin 1,000 mcg 09/29/22 09:00 09/29/22 08:18 Cyanocobalamin 1,000 Mcg Tablet PO 1,000 mcg DAILY DEON Administration Levothyroxine Sodium 75 mcg 09/29/22 06:30 09/29/22 05:47 Levothyroxine Sodium 75 Mcg Tablet PO 75 mcg DAILY@0630 DEON Administration Loratadine 10 mg 09/29/22 09:00 09/29/22 08:19 Loratadine 10 Mg Tablet PO 10 mg DAILY DEON Administration Melatonin 10 mg 09/28/22 18:42 Melatonin 5 Mg Tablet PO HS PRN Insomnia Perflutren Lipid Microsphere 0 ml 09/27/22 22:55 Perflutren Lipid Microspheres 1.5 Ml Vial Diluted To 10 Ml Total Volume IV PUSH 09/29/22 22:57 ONCE PRN adequate visualization Protocol Vitamin D 1,000 units 09/29/22 09:00 09/29/22 08:19 Cholecalciferol 1,000 Units Tablet PO 1,000 units DAILY DEON Administration Radiology Results: ITS Impressions Chest X-Ray 09/27/22 20:09 Impression: 1: No acute cardiopulmonary disease. Head/Neck CTA
[2022-09-29 14:00] VITALS: BP 122/78; PULSE 73; RESP 18; TEMP 36.4; O2SAT 98
[2022-09-29 22:00] VITALS: BP 116/74; PULSE 71; RESP 16; TEMP 36.6; O2SAT 99
[2022-09-30 06:00] VITALS: BP 117/80; PULSE 69; RESP 16; TEMP 36.4; O2SAT 97
[2022-09-30] MEDS: LEVOTHYROXINE SODIUM 75 MCG TABLET PO (06:09)
[2022-09-30] MEDS: ASCORBIC ACID 500 MG TABLET PO (09:35)
[2022-09-30] MEDS: LORATADINE 10 MG TABLET PO (09:35)
[2022-09-30] MEDS: CHOLECALCIFEROL 1,000 UNITS TABLET 1000 UNITS PO (09:35)
[2022-09-30] MEDS: ASPIRIN 81 MG CHEWABLE TABLET PO (09:35)
[2022-09-30] MEDS: CYANOCOBALAMIN 1,000 MCG TABLET 1000 MCG PO (09:35)
[2022-09-30 14:00] VITALS: BP 118/67; PULSE 68; RESP 16; TEMP 36.3; O2SAT 98
[2022-09-30 15:40] LABS: Basophils Absolute Auto 0.1 K/mm3 (0.0-0.1); Basophils Percent Auto 1.5 % (0.2-1.2); Eosinophils Absolute Auto 0.1 K/mm3 (0-0.3); Eosinophils Percent Auto 1.2 % (0-4.4); Hematocrit 45.7 % (37.0-47.0); Hemoglobin 15.4 g/dL (12.0-15.0); Immature Granulocyte Absolute 0.03 K/mm3 (0.00-0.031); Immature Granulocyte Percent A 0.4 % (0-0.5); Lymphocytes Absolute Auto 2.41 K/mm3 (0.9-3.2); Lymphocytes Percent Auto 31.1 % (18.3-44.2); Mean Corpuscular HGB Conc 33.7 g/dl (32-36); Mean Corpuscular Hemoglobin 31.8 pg (26-34); Mean Corpuscular Volume 94.4 fl (80-100); Mean Platelet Volume 9.3 fl (7.4-10.4); Monocytes Absolute Auto 0.8 K/mm3 (0.1-0.6); Monocytes Percent Auto 9.7 % (2.6-8.5); Neutrophils Absolute Auto 4.4 K/mm3 (1.3-6.7); Neutrophils Percent Auto 56.1 % (45.5-73.1); Platelet Count Result 372 k/mm3 (150-375); Red Blood Count 4.84 M/mm3 (4.2-5.4); Red Cell Distribution Width 13.9 % (11.5-14.5); White Blood Count 7.8 K/mm3 (4.5-10.0)
[2022-09-30 16:05] LABS: Alanine Aminotransferase 29 U/L (6-35); Albumin Level 3.9 g/dL (3.5-5.1); Alkaline Phosphatase 94 U/L (38-126); Anion Gap 9 mmol/L (8-16); Aspartate Amino Transferase 35 U/L (14-36); Bilirubin,Total 0.4 mg/dL (0.2-1.3); Blood Urea Nitrogen 14 mg/dL (7-17); Calcium 8.9 mg/dL (8.4-10.2); Carbon Dioxide 24 mmol/L (22-30); Chloride 104 mmol/L (98-107); Estimated CRCL calculation 76 ml/min; Estimated Glomerular Filt Rate > 60; Glucose 92 mg/dL (65-110); Potassium 4.1 mmol/L (3.4-5.0); Sodium 137 mmol/L (137-145)
--- NOTE | 2022-09-30 18:37 | PM.IMPN ---
Progress Note: A&P Assessment and Plan (1) Cerebrovascular accident: Code(s): I63.9 - Cerebral infarction, unspecified Status: Acute Assessment and Plan: Appreciate neurology consultation Hypercoagulable workup pending Echo unremarkable MRI with acute and subacute infarcts as well as chronic infarcts, unknown etiology (2) Stenosis of right middle cerebral artery: Code(s): I66.01 - Occlusion and stenosis of right middle cerebral artery Status: Acute Assessment and Plan: Appreciate neurology consultation and management (3) Ketosis: Code(s): E88.89 - Other specified metabolic disorders Status: Acute Assessment and Plan: Resolved (4) Dehydration: Code(s): E86.0 - Dehydration Status: Acute Assessment and Plan: Resolved Plan Comorbidity: Down syndrome DVT prophylaxis with SCDs GI prophylaxis not indicated Code status full code Subjective Date/time seen: 09/30/22 18:37 Interval history: Somewhat improved facial droop and weaknesses in upper and lower extremities on the left. No overnight events. No fevers, chills, NVD, CP, SOB. Exam Narrative: General: No acute distress, sleeping HEENT: Atraumatic, normocephalic, mucous membranes moist CV: Regular rate and rhythm, S1, S2 Lungs: Clear to auscultation bilaterally, no rales or crackles noted, no wheezes, good air entry Abdomen: Soft, nontender, nondistended Extremities: Normal to inspection Skin: No rashes noted, no lesions or wounds seen Psych: Unable to assess Objective Data Vital Signs Vital Signs: Vital Signs - 24 hr 09/29/22 22:00 09/30/22 06:00 09/30/22 14:00 Temperature 98 F 97.5 F L 97.4 F L Pulse Rate 71 69 68 Respiratory Rate 16 16 16 Blood Pressure 116/74 117/80 118/67 Pulse Oximetry 99 97 98 Intake/Output Intake/Output: Intake & Output 09/27/22 09/28/22 09/29/22 09/30/22 23:59 23:59 23:59 23:59 Intake Total 0468 213 0046 758 Output Total 600 1550 400 Balance 1000 360 -540 358 Meds/Results Medications: Active Medications Generic Name Dose Route Start Last Admin Trade Name Freq PRN Reason Stop Dose Admin Acetaminophen 650 mg 09/27/22 22:55 Acetaminophen 325 Mg Tablet PO Q6H PRN Mild Pain (1-3) or Fever Ascorbic Acid 500 mg 09/29/22 09:00 09/30/22 09:35 Ascorbic Acid 500 Mg Tablet PO 500 mg DAILY DEON Administration Aspirin 81 mg 09/28/22 08:00 09/30/22 09:35 Aspirin 81 Mg Chewable Tablet PO 81 mg DAILY@0800 DEON Administration Cyanocobalamin 1,000 mcg 09/29/22 09:00 09/30/22 09:35 Cyanocobalamin 1,000 Mcg Tablet PO 1,000 mcg DAILY DEON Administration Levothyroxine Sodium 75 mcg 09/29/22 06:30 09/30/22 06:09 Levothyroxine Sodium 75 Mcg Tablet PO 75 mcg DAILY@0630 DEON Administration Loratadine 10 mg 09/29/22 09:00 09/30/22 09:35 Loratadine 10 Mg Tablet PO 10 mg DAILY DEON Administration Melatonin 10 mg 09/28/22 18:42 Melatonin 5 Mg Tablet PO HS PRN Insomnia Vitamin D 1,000 units 09/29/22 09:00 09/30/22 09:35 Cholecalciferol 1,000 Units Tablet PO 1,000 units DAILY DEON Administration Radiology Results: ITS Impressions Chest X-Ray 09/27/22 20:09 Impression: 1: No acute cardiopulmonary disease. Head/Neck CTA 09/27/22 20:34 IMPRESSION: 1: Geographic areas of hypodensity involving the right basal ganglia and right posterior parietal lobes, suspicious for acute or subacute infarctions. No significant mass effect or associated hemorrhage. 2: Moderate-severe stenosis at the origin of the right middle cerebral artery. Dr. Jackson Kennedy discussed with Dr. Juli Palmer MD at 09/27/2022 20:41 CDT. Brain MRI 09/28/22 14:42 IMPRESSION: 1. Acute/subacute infarctions of the right caudate and lentiform nuclei. 2: Chronic multifocal infarctions of the right parietal lobe. Labs Labs:
[2022-09-30 21:01] VITALS: BP 119/70; PULSE 78; RESP 14; TEMP 36.1; O2SAT 98
[2022-10-01 06:00] VITALS: BP 101/76; PULSE 64; RESP 14; TEMP 36.1; O2SAT 95
[2022-10-01] MEDS: LEVOTHYROXINE SODIUM 75 MCG TABLET PO (06:13)
[2022-10-01] MEDS: ASCORBIC ACID 500 MG TABLET PO (08:58)
[2022-10-01] MEDS: CYANOCOBALAMIN 1,000 MCG TABLET 1000 MCG PO (08:58)
[2022-10-01] MEDS: CHOLECALCIFEROL 1,000 UNITS TABLET 1000 UNITS PO (08:58)
[2022-10-01] MEDS: ASPIRIN 81 MG CHEWABLE TABLET PO (08:58)
[2022-10-01] MEDS: LORATADINE 10 MG TABLET PO (08:58)
--- NOTE | 2022-10-01 10:26 | PCPTNOTE ---
On 10/01/22, the student, LYDIA Galvan, provided care and completed [facility] documentation on this patient. I have reviewed the student's documentation and agree with the findings.
[2022-10-01] MEDS: ATORVASTATIN 40 MG TABLET PO (10:32)
[2022-10-01] MEDS: CLOPIDOGREL BISULFATE 75 MG TABLET PO (10:32)
--- NOTE | 2022-10-01 10:38 | PC.NURSE ---
MD neri to remove IV.
--- NOTE | 2022-10-01 10:52 | PM.IMPN ---
Progress Note: A&P Assessment and Plan (1) Cerebrovascular accident: Code(s): I63.9 - Cerebral infarction, unspecified Status: Acute Assessment and Plan: Patient presents with left sided weakness. Head and Neck CTA showing hypodensity involving right basal ganglia and right posterior parietal lobes and moderate-severe stenosis at the origin of the MCA. Brain MRI showing acute/subacute right caudate and lentiform nuclei infarcts and chronic multifocal infarctions of the right parietal lobe. Could all be from the right MCA stenosis. Echo showing EF 65-70% with normal diastolic function and no evidence of intracardiac shunt. Appreciate neurology consultation. Hypercoagulable workup started. No family hx of VTE but +family hx of miscarriages. Continue ASA. Resume Plavix and Lipitor per neurology recommendations. Place on tele. Continue PT/OT. Plan for placement at [facility]. (2) Stenosis of right middle cerebral artery: Code(s): I66.01 - Occlusion and stenosis of right middle cerebral artery Status: Acute Assessment and Plan: As above. Appreciate neurology consultation and management. Will need neurosurgery outpatient evaluation. (3) Ketosis: Code(s): E88.89 - Other specified metabolic disorders Status: Acute Assessment and Plan: Patieint with gap metabolic acidosis on admission with serum bicarb 14 and AG 19. No ABG. BHOB was elevated at 1.0 but glucose normal. No lactic acid drawn. UA showing SG 1.030 and 4+ ketones. Hgb 17 as well to suggest dehydration. With IV fluids, Hgb better and acidosis resolved. Resolved. Encouraged family to encourage patient to drink more free water. (4) Dehydration: Code(s): E86.0 - Dehydration Status: Acute Assessment and Plan: As above. 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 Assuming care. Chart reviewed. Patient has mild cough and associated chest pain (family in the room state patient not having cough). Hx unreliable from patient. She is not having nausea or vomiting. She is walking with therapy in the [place]. Review of Systems Review of Systems: ROS unobtainable: Yes unobtainable due to medical condition Exam Narrative: AF 97.0 101/76 64 14 95% ra Gen - WNWD female with Downs facial features in NARD sitting up in chair Chest - CTA bilaterally, nml RR CV - RRR S1/S2 Abd - Soft, NT/ND, Positive BS Ext - No pedal edema Neuro - Alert but confused. left hemiparesis Psych - Nml mood and affect. pleasant and cooperative Skin - Warm and dry. Small quarter sized scar to the right marcus Objective Data Vital Signs Vital Signs: Vital Signs - 24 hr 09/30/22 14:00 09/30/22 21:01 09/30/22 20:00 Temperature 97.4 F L 97 F L Pulse Rate 68 78 Respiratory Rate 16 14 Blood Pressure 118/67 119/70 Pulse Oximetry 98 98 Oxygen Delivery Room Air 10/01/22 06:00 Temperature 97 F L Pulse Rate 64 Respiratory Rate 14 Blood Pressure 101/76 Pulse Oximetry 95 Oxygen Delivery Intake/Output Intake/Output: Intake & Output 09/28/22 09/29/22 09/30/22 10/01/22 23:59 23:59 23:59 23:59 Intake Total 240 1010 758 390 Output Total 600 1550 400 Balance -360 -540 358 390 Meds/Results Medications: Active Medications Generic Name Dose Route Start Last Admin Trade Name Freq PRN Reason Stop Dose Admin Acetaminophen 650 mg 09/27/22 22:55 Acetaminophen 325 Mg Tablet PO Q6H PRN Mild Pain (1-3) or Fever Ascorbic Acid 500 mg 09/29/22 09:00 10/01/22 08:58 Ascorbic Acid 500 Mg Tablet PO 500 mg DAILY DEON Administration Aspirin 81 mg 09/28/22 08:00 10/01/22 08:58 Aspirin 81 Mg Chewable Tablet PO 81 mg DAILY@0800 DEON Administration Atorvastati
[2022-10-01 12:00] VITALS: PULSE 87
[2022-10-01 13:46] VITALS: BP 129/77; PULSE 91; RESP 18; TEMP 35.9; O2SAT 98
[2022-10-01 16:00] VITALS: PULSE 91
[2022-10-01 20:00] VITALS: PULSE 88
[2022-10-01 20:56] VITALS: BP 117/79; PULSE 85; RESP 18; TEMP 36.6; O2SAT 97
[2022-10-02] VITALS: PULSE 76
[2022-10-02 04:00] VITALS: PULSE 63
[2022-10-02 06:00] VITALS: BP 108/66; PULSE 64; RESP 18; TEMP 36.2; O2SAT 96
[2022-10-02] MEDS: LEVOTHYROXINE SODIUM 75 MCG TABLET PO (06:29)
[2022-10-02 08:00] VITALS: PULSE 58
[2022-10-02] MEDS: CLOPIDOGREL BISULFATE 75 MG TABLET PO (09:01)
[2022-10-02] MEDS: CHOLECALCIFEROL 1,000 UNITS TABLET 1000 UNITS PO (09:01)
[2022-10-02] MEDS: ASPIRIN 81 MG CHEWABLE TABLET PO (09:01)
[2022-10-02] MEDS: ASCORBIC ACID 500 MG TABLET PO (09:01)
[2022-10-02] MEDS: LORATADINE 10 MG TABLET PO (09:01)
[2022-10-02] MEDS: CYANOCOBALAMIN 1,000 MCG TABLET 1000 MCG PO (09:01)
[2022-10-02] MEDS: ATORVASTATIN 40 MG TABLET PO (09:01)
[2022-10-02] MEDS: ACETAMINOPHEN 325 MG TABLET 650 MG PO (09:10)
[2022-10-02 10:35] LABS: Factor VIII Activity 97 % normal (50-180)
--- NOTE | 2022-10-02 10:48 | PM.DS ---
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 Please see H&P for details. Hospital Course: Patient presents with left sided weakness. Head and Neck CTA showing hypodensity involving right basal ganglia and right posterior parietal lobes and moderate-severe stenosis at the origin of the MCA. Brain MRI showing acute/subacute right caudate and lentiform nuclei infarcts and chronic multifocal infarctions of the right parietal lobe. Echo showing EF 65-70% with normal diastolic function and no evidence of intracardiac shunt. Neurology consulted and appreciate their input. Hypercoagulable workup was started. No family hx of VTE but +family hx of miscarriages. She was treated with ASA. Plavix started for a total of 3 months. Lipitor also added. She was on telemetry but no evidence of AFib or other dysrhythmias. She worked with PT/ OT. Speech did a bedside evaluation and diet adjusted. She will need neurosurgery outpatient evaluation for the MCA stenosis. Patient with gap metabolic acidosis on admission with serum bicarb 14 and AG 19. No ABG drawn. BHOB was elevated at 1.0 but glucose normal. No lactic acid drawn. UA showing SG 1.030 and 4+ ketones. Hgb 17 as well to suggest dehydration. With IV fluids, Hgb improved and acidosis resolved. She overall did well. She was able to be discharged to [facility] on 10/02/22 Status at Discharge Cognitive/behavioral status at discharge: stable Time Spent with Patient Time attestation: Total time spent providing and/or coordinating discharge services:33 minutes Time spent: Greater than 30 minutes Exam Narrative: AF 97.1 108/66 64 18 96% ra Gen - WNWD female with Downs facial features in NARD sitting up in chair feeding herself Chest - CTA bilaterally, nml RR CV - RRR S1/S2. Tele showing no alarms Abd - Soft, NT/ND, Positive BS Ext - No pedal edema Neuro - Alert but confused. left hemiparesis Psych - Nml mood and affect. pleasant and cooperative Skin - Warm and dry. Small quarter sized scar to the right marcus DS: Data Data Completed and Pending Labs on day of discharge: Labs from last 24 hours 09/29/22 13:50 Factor VIII Activity 97 Discharge Plan Discharge Attending physician on discharge: Jacob North Consulting providers: Ravinder Pack Discharging Clinician: Jacob North Anticipated Discharge Date/Time: 10/02/22 10:55 Patient Disposition: Inpatient Rehab Facility Activity: as tolerated Diet: heart healthy and other - see discharge instructions Discharge Instructions: Soft and Bite sized Level 6 diet Take precautions to avoid falls. Rise slowly from a lying or sitting position. Pause before standing or walking. Contact the doctor if the patient has any type of trauma, lightheadedness with standing or other worrisome symptoms. Avoid NSAIDs (ibuprofen, naproxen, Aleve). Tylenol is safe to take. Follow-up with the provider at the facility. Follow-up with Neurology in 3-4 months. Please call for an appointment. Follow-up with Neurosurgery in 4-6 weeks for further evaluation of the right MCA stenosis. Please call for an appointment. Plavix 75mg daily x 3 months (Started on 10/01/22) Thank you for using [facility] for your health care needs. Stand Alone Forms: Gen
[2022-10-02 18:51] LABS: Homocysteine 7.6 umol/L (<10.4)
[2022-10-02 21:43] LABS: Lipoprotein A <10 nmol/L (<75)
[2022-10-02 22:33] LABS: Antithrombin III Activity 87 % normal (80-135)
[2022-10-03 15:14] LABS: Lupus dRVVT Confirmation Negative (Negative); Lupus dRVVT Screen 47 sec (<=45); PTT-LA Screen 33 sec (<=40)
[2022-10-04 17:19] LABS: Factor V (Leiden) Mutation NEGATIVE
--- NOTE | 2022-10-07 11:19 | PC.NURSE ---
[id number] Beta2 Glycoprotein I Abs <2.0 Factor VLeiden- negative Factor V111 activity- 97 Lupus ANticoagulant is negative MTHPR mutation is positive for [id number] and [id number] Protein C- 174 Protein S 96 Prothrombin Gene analysis is Negative. Dr. North aware of all the above
--- NOTE | 2022-10-08 11:44 | PC.NURSE ---
Faxed MTHFR DNA results to Dr. Galdamez.
[2022-10-08 12:29] LABS: Lupus dRVVT Additional Testing indicated
[2022-10-08 19:33] LABS: Anti Cardio Antibody IgM <2.0 MPL-U/mL (<20.0); Anti Cardiolipin Antibody IgA <2.0 APL-U/mL (<20.0); Anti Cardiolipin Antibody IgG <2.0 GPL-U/mL (<20.0)
--- NOTE | 2022-10-10 10:29 | PC.NURSE ---
Anti-cardiolipin AB is 2.0- WNL Lupus A- negative. Dr. Can hargrove.
--- NOTE | 2022-10-22 07:11 | PC.NURSE ---
All labs faxed to Dr. Galdamez's office.
== END 2022-10-02 12:40 | DRG 65 ==
LOC: ANHED 21:50 → ANH3MEDSUR 22:16
PROVIDERS: Physician Assistant; Student in an Organized Health Care Education/Training Program; Admitting Provider Internal Medicine; Emergency Provider Emergency Medicine; PCP Family Medicine; Visit Provider Internal Medicine
DX: I63.411 Cerebral infarction due to embolism of right middle cerebral artery (principal); G81.94 Hemiplegia, unspecified affecting left nondominant side; R29.810 Facial weakness; E03.9 Hypothyroidism, unspecified; E86.0 Dehydration; E88.89 Other specified metabolic disorders; Q90.9 Down syndrome, unspecified
CPT/HCPCS: 36415; 70496; 70498; 70553; 71045; 80048; 80053; 80061; 80307; 81001; 81025; 81240; 81241; 81291; 82010; 83090; 83695; 83735; 84100; 84443; 84484; 85025; 85027; 85240; 85300; 85303; 85306; 85597; 85610; 85613; 85730; 86146; 86147; 87086; 87088; 92610; 93005; 93306; 96375; 97110; 97112; 97116; 97161; 97165; 97530; 97535; 99285; A9270; A9577; J7042; J7120; Q9967

== ENCOUNTER 2023-01-20 14:15 | Outpatient (RCR) | payer OTHER, MEDICAID, SELFPAY ==
--- NOTE | 2022-10-21 11:39 | PCPTNOTE ---
Pt and family arrived 25 mins late for evaluation d/t going to wrong location. They have been rescheduled.
--- NOTE | 2022-10-28 14:32 | OTOPEVAL1 ---
Assessment and note entered by ALONZO Sanchez/Mario, CHT Evaluation Information Assessment Status Evaluation Diagnosis CVA Onset 09/23/22 Subjective Information CVA with left sided weakness. She is s/p acute care and inpatient rehab where she received PT/OT/ ST services. She discharged home and was referred for outpatient OT/PT. Her mom and dad have been working on her HEP from inpatient rehab - active ROM against gravity and gripping a ball. Patient and her parents report she is having difficulties with 2-handed tasks such as putting her hair in a pony tail, eating, dressing, and buttons. Reported Pain Level Pain Score 0: Self Report Assessment OT Clinical Summary Patient referred to outpatient OT s/p CVA with residual left sided deficit which has affected her ability to complete 2-handed ADL tasks without assistance. Skilled OT indicated to facilitate optimal functional strength, coordination, and use of her left UE. Plan of Care Interventions Therapeutic Exercise,Neuro Re-education, Therapeutic Activities OT Services Indicated Yes Treatment Frequency and 2x/week for 4 weeks Duration These treatments will address the objective and functional deficits as defined above. The patient will be advanced safely and appropriately in order for the patient to progress towards his/her prior level of function. Additional exercises will be introduced and as well as a comprehensive home exercise program upon discharge, if needed, ?to ensure carryover of functional gains achieved in the clinic. This treatment plan has been reviewed and agreement upon by the patient.
--- NOTE | 2022-10-28 14:32 | OPREHPOC ---
Outpatient Therapy Plan of Care This is a Multidisciplinary Plan of Care that may contain components documented by all disciplines (PT, OT, and ST.) OT Problem 1 OT Problem #1 Knowledge Deficit OT Goal 1 Goal 1. Patient/family to be independent with instructed materials. Target Visit 8 OT Problem 2 OT Problem #2 Impaired Coordination OT Goal 1 Goal 1. Patient to be able to complete the 9-hole peg test with the left hand in 45 seconds or less. Target Visit 8 OT Problem 3 OT Problem #3 Impaired Strength OT Goal 1 Goal Patient to increase functional left UE strength: 1. shoulder flexion/extension to 4/5 2. elbow extension to 4/5 3. aquaculture program director strength to 20 lbs. Target Visit 8
--- NOTE | 2022-10-28 15:41 | OPREHPOC ---
Outpatient Therapy Plan of Care This is a Multidisciplinary Plan of Care that may contain components documented by all disciplines (PT, OT, and ST.) PT Problem 1 PT Problem #1 Knowledge Deficit PT Goal 1 Goal 1. Patient will perform HEP with assist from parents as needed Target Visit 8 PT Problem 2 PT Problem #2 Impaired Endurance PT Goal 1 Goal 1. Improve ambulation on 2 minute walk test to at least 300 feet with appropriate assistive device Target Visit 8 PT Problem 3 PT Problem #3 Impaired Strength PT Goal 1 Goal 1. Improve LE MMT to at least 4/5 in all planes Target Visit 8 PT Problem 4 PT Problem #4 Impaired Functional ADLs PT Goal 1 Goal 1. Patient able to navigate 12 stairs with reciprocal pattern 2. Patient able to do household ambulation without assistive device Target Visit 8 OT Problem 1 OT Problem #1 Knowledge Deficit OT Goal 1 Goal 1. Patient/family to be independent with instructed materials. Target Visit 8 OT Problem 2 OT Problem #2 Impaired Coordination OT Goal 1 Goal 1. Patient to be able to complete the 9-hole peg test with the left hand in 45 seconds or less. Target Visit 8 OT Problem 3 OT Problem #3 Impaired Strength OT Goal 1 Goal Patient to increase functional left UE strength: 1. shoulder flexion/extension to 4/5 2. elbow extension to 4/5 3. funeral prearrangement counselor strength to 20 lbs. Target Visit 8
--- NOTE | 2022-10-28 15:41 | PTOPEVAL1 ---
Assessment and note entered by Ana Red DPT Evaluation Information Assessment Status Evaluation Subjective Information Pt and her parents report Brynn started complaining that her left leg, knee, and right arm were hurting. Was noticing some trouble walking. Had x- rays taken and then taken to the hospital again where she was diagnosed with a CVA on 09/27/22. She was in the hospital for a little more than a week and sent to [facility] for about a week. No home health. Pt has been doing very minimal walking independently at home, using a walker or a cane most of the time. No assistive device prior to stroke. Pt has stairs at home with hand rails. Previously alternated feet with stairs but is placing both feet on stairs currently. Has a shower bench and a handrail to use. Also has a diagnosis of Down Syndrome. Reports she does not have pain in her legs. Patient goal: get rid of the walker Reported Pain Level Pain Score 0: Self Report Assessment PT Clinical Summary The patient is presenting to skilled therapy following a stroke approximately 4 weeks ago. She presents with significant LE weakness, difficulty walking, and difficulty with stair navigation. These impairments are contributing to her current use of a walker or cane and difficulty with household navigation. She will highly benefit from therapy to address her strength and return to prior level of function. Plan of Care Interventions Gait Training,Manual Therapy,Neuro Re-education, Patient/Caregiver Education,Therapeutic Activities, Therapeutic Exercise PT Services Indicated Yes Treatment Frequency and 2 times a week for 4 weeks Duration These treatments will address the objective and functional deficits as defined above. The patient will be advanced safely and appropriately in order for the patient to progress towards his/her prior level of function. Additional exercises will be introduced and as well as a comprehensive home exercise program upon discharge, if needed, ?to ensure carryover of functional gains achieved in the clinic. This treatment plan has been reviewed and agreement upon by the patient.
--- NOTE | 2022-11-25 14:02 | OTOPPROG ---
Assessment and note entered by Khanh Garcia, OTR/Mario, CHT Evaluation Information Assessment Status Progress Diagnosis CVA with left sided weakness Onset 09/23/22 Subjective Information Patient and her parents report she is making excellent progress with the left arm. She is now dressing herself independently, able to put her hair in a ponytail again, and doing buttons again. They report they are compliant with the HEP. They have progressed to using a 2 lb. weight for the left UE HEP. Gross strength of the left UE improved from 3+/5 to 4/5 in the shoulder and elbow and 4-/5 in the wrist. Left registered radiographer improved from 9 to 13 lbs. She completed the 9-hole peg test with the right hand in 54 seconds, compared to 80 seconds at the start of care. Assessment OT Clinical Summary Patient referred to outpatient OT s/p CVA with residual left sided deficit. She is making progress with functional strength and coordination , which has carried over into improved functional independence with ADLs. She continues to have some residual deficits and will benefit from continued skilled OT. Plan of Care Interventions Therapeutic Exercise,Neuro Re-education, Therapeutic Activities OT Services Indicated Yes Treatment Frequency and 2x/week for 4 weeks Duration These treatments will address the objective and functional deficits as defined above. The patient will be advanced safely and appropriately in order for the patient to progress towards his/her prior level of function. Additional exercises will be introduced and as well as a comprehensive home exercise program upon discharge, if needed, ?to ensure carryover of functional gains achieved in the clinic. This treatment plan has been reviewed and agreement upon by the patient.
--- NOTE | 2022-11-25 14:02 | OPREHPOC ---
Outpatient Therapy Plan of Care This is a Multidisciplinary Plan of Care that may contain components documented by all disciplines (PT, OT, and ST.) PT Problem 1 PT Problem #1 Knowledge Deficit PT Goal 1 Goal 1. Patient will perform HEP with assist from parents as needed Target Visit 8 PT Problem 2 PT Problem #2 Impaired Endurance PT Goal 1 Goal 1. Improve ambulation on 2 minute walk test to at least 300 feet with appropriate assistive device Target Visit 8 PT Problem 3 PT Problem #3 Impaired Strength PT Goal 1 Goal 1. Improve LE MMT to at least 4/5 in all planes Target Visit 8 PT Problem 4 PT Problem #4 Impaired Functional ADLs PT Goal 1 Goal 1. Patient able to navigate 12 stairs with reciprocal pattern 2. Patient able to do household ambulation without assistive device Target Visit 8 OT Problem 1 OT Problem #1 Knowledge Deficit OT Goal 1 Goal 1. Patient/family to be independent with instructed materials. --OT POC UPDATE 11/25/22-- 1. Met, continue as HEP is progressed Target Visit 16 OT Problem 2 OT Problem #2 Impaired Coordination OT Goal 1 Goal 1. Patient to be able to complete the 9-hole peg test with the left hand in 45 seconds or less. --OT POC UPDATE 11/25/22-- 1. Progressing, continue goal Target Visit 16 OT Problem 3 OT Problem #3 Impaired Strength OT Goal 1 Goal Patient to increase functional left UE strength: 1. shoulder flexion/extension to 4/5 2. elbow extension to 4/5 3. engineering writer strength to 20 lbs. --OT POC UPDATE 11/25/22-- 1. Met 2. Met 3. Progressing, continue Target Visit 16
--- NOTE | 2022-11-25 14:28 | OPREHPOC ---
Outpatient Therapy Plan of Care This is a Multidisciplinary Plan of Care that may contain components documented by all disciplines (PT, OT, and ST.) PT Problem 1 PT Problem #1 Knowledge Deficit PT Goal 1 Goal 1. Patient will perform HEP with assist from parents as needed Target Visit 16 Progress Partially Met PT Problem 2 PT Problem #2 Impaired Endurance PT Goal 1 Goal 1. Improve ambulation on 2 minute walk test to at least 300 feet with appropriate assistive device Target Visit 8 Progress Met PT Goal 2 Goal New goal 2. Improve ambulation on 2 minute walk test to at least 350 feet without device Target Visit 16 PT Problem 3 PT Problem #3 Impaired Strength PT Goal 1 Goal 1. Improve LE MMT to at least 4/5 in all planes Target Visit 8 PT Problem 4 PT Problem #4 Impaired Functional ADLs PT Goal 1 Goal 1. Patient able to navigate 12 stairs with reciprocal pattern 2. Patient able to do household ambulation without assistive device Target Visit 8 Progress Partially Met OT Problem 1 OT Problem #1 Knowledge Deficit OT Goal 1 Goal 1. Patient/family to be independent with instructed materials. --OT POC UPDATE 11/25/22-- 1. Met, continue as HEP is progressed Target Visit 16 OT Problem 2 OT Problem #2 Impaired Coordination OT Goal 1 Goal 1. Patient to be able to complete the 9-hole peg test with the left hand in 45 seconds or less. --OT POC UPDATE 11/25/22-- 1. Progressing, continue goal Target Visit 16 OT Problem 3 OT Problem #3 Impaired Strength OT Goal 1 Goal Patient to increase functional left UE strength: 1. shoulder flexion/extension to 4/5 2. elbow extension to 4/5 3. carpenter packing strength to 20 lbs. --OT POC UPDATE 11/25/22-- 1. Met 2. M
--- NOTE | 2022-11-25 14:29 | PTOPPROG ---
Assessment and note entered by Ana Red DPT Evaluation Information Assessment Status Progress Subjective Information Brynn reports she has been feeling better with therapy. Her mom reports she has been able to navigate more at home with her cane and sometimes without a device at all and has been doing more stair navigation as well, but that she is not completely back to where she was before. Assessment PT Clinical Summary The patient has made good progress in therapy and reports improved ability to ambulate and navigate stairs at home. She demonstrates improved LE strength, improved walking speed, and improved stair pattern. She will continue to benefit from skilled therapy to further address strength and gait to fully return to participation in ADL's and return to PLOF. Plan of Care Interventions Gait Training,Manual Therapy,Neuro Re-education, Patient/Caregiver Education,Therapeutic Activities, Therapeutic Exercise PT Services Indicated Yes Treatment Frequency and 2 times a week for 4 visits Duration These treatments will address the objective and functional deficits as defined above. The patient will be advanced safely and appropriately in order for the patient to progress towards his/her prior level of function. Additional exercises will be introduced and as well as a comprehensive home exercise program upon discharge, if needed, ?to ensure carryover of functional gains achieved in the clinic. This treatment plan has been reviewed and agreement upon by the patient.
--- NOTE | 2022-11-28 13:19 | PCPTNOTE ---
Patient no showed and no call. Left voicemail this date.
--- NOTE | 2022-12-23 13:40 | OTOPPROG ---
Assessment and note entered by Khanh Garcia, ALONZO/Mario, CHT Evaluation Information Diagnosis CVA with left sided weakness Onset 09/23/22 Subjective Information Patient and her parents report she is making more progress with functional use of the left UE. She is back to functioning independently with the exception of doing the shower transfer, they are providing supervision for this. They have grab bars . They report she is doing better with using the left arm and occasionally needs cues to remember to use the left hand to reach for and ex assistant/program director objects . Gross strength of the left UE improved from 4/5 to 4+/5 in the shoulder, 4+/5 for elbow flexion, and remained 3+/5 for triceps (this is symmetrical to the right side) and 4/5 in the wrist. Left ex assistant/program director decreased by 1 lb, measuring 12 lbs. She completed the 9-hole peg test with the right hand in 49 seconds, compared to 80 seconds at the start of care. Assessment OT Clinical Summary Patient referred to outpatient OT s/p CVA with residual left sided deficit. She is making progress with functional strength and coordination , which has carried over into improved functional independence with ADLs. She continues to have some residual deficits and will benefit from continued skilled OT. Plan of Care Interventions Therapeutic Exercise,Neuro Re-education, Therapeutic Activities OT Services Indicated Yes Treatment Frequency and 2x/week for 4 weeks Duration These treatments will address the objective and functional deficits as defined above. The patient will be advanced safely and appropriately in order for the patient to progress towards his/her prior level of function. Additional exercises will be introduced and as well as a comprehensive home exercise program upon discharge, if needed, ?to ensure carryover of functional gains achieved in the clinic. This treatment plan has been reviewed and agreement upon by the patient.
--- NOTE | 2022-12-23 13:42 | OPREHPOC ---
Outpatient Therapy Plan of Care This is a Multidisciplinary Plan of Care that may contain components documented by all disciplines (PT, OT, and ST.) PT Problem 1 PT Problem #1 Knowledge Deficit PT Goal 1 Goal 1. Patient will perform HEP with assist from parents as needed Target Visit 16 Progress Partially Met PT Problem 2 PT Problem #2 Impaired Endurance PT Goal 1 Goal 1. Improve ambulation on 2 minute walk test to at least 300 feet with appropriate assistive device Target Visit 8 Progress Met PT Goal 2 Goal New goal 2. Improve ambulation on 2 minute walk test to at least 350 feet without device Target Visit 16 PT Problem 3 PT Problem #3 Impaired Strength PT Goal 1 Goal 1. Improve LE MMT to at least 4/5 in all planes Target Visit 8 PT Problem 4 PT Problem #4 Impaired Functional ADLs PT Goal 1 Goal 1. Patient able to navigate 12 stairs with reciprocal pattern 2. Patient able to do household ambulation without assistive device Target Visit 8 Progress Partially Met OT Problem 1 OT Problem #1 Knowledge Deficit OT Goal 1 Goal 1. Patient/family to be independent with instructed materials. --OT POC UPDATE 11/25/22-- 1. Met, continue as HEP is progressed ---OT POC UPDATE 12/23/22-- 1. Met, continue as HEP is progressed Target Visit 22 OT Problem 2 OT Problem #2 Impaired Coordination OT Goal 1 Goal 1. Patient to be able to complete the 9-hole peg test with the left hand in 45 seconds or less. --OT POC UPDATE 11/25/22-- 1. Progressing, continue goal ---OT POC UPDATE 12/23/22-- 1. Progressing, continue goal Target Visit 22 OT Problem 3 OT Problem #3 Impaired Strength OT Goal 1 Goal Patient to increase functional left UE strength: 1. shoulder flexion/extension to 4/5 2. e
--- NOTE | 2022-12-23 14:17 | OPREHPOC ---
Outpatient Therapy Plan of Care This is a Multidisciplinary Plan of Care that may contain components documented by all disciplines (PT, OT, and ST.) PT Problem 1 PT Problem #1 Knowledge Deficit PT Goal 1 Goal 1. Patient will perform HEP with assist from parents as needed Target Visit 20 Progress Partially Met PT Problem 2 PT Problem #2 Impaired Endurance PT Goal 1 Goal 1. Improve ambulation on 2 minute walk test to at least 300 feet with appropriate assistive device Target Visit 8 Progress Met PT Goal 2 Goal New goal 2. Improve ambulation on 2 minute walk test to at least 350 feet without device Target Visit 20 Progress Partially Met Comment 336 feet without device PT Problem 3 PT Problem #3 Impaired Strength PT Goal 1 Goal 1. Improve LE MMT to at least 4/5 in all planes Target Visit 20 Progress Partially Met PT Problem 4 PT Problem #4 Impaired Functional ADLs PT Goal 1 Goal 1. Patient able to navigate 12 stairs with reciprocal pattern 2. Patient able to do household ambulation without assistive device Target Visit 20 Progress Partially Met OT Problem 1 OT Problem #1 Knowledge Deficit OT Goal 1 Goal 1. Patient/family to be independent with instructed materials. --OT POC UPDATE 11/25/22-- 1. Met, continue as HEP is progressed ---OT POC UPDATE 12/23/22-- 1. Met, continue as HEP is progressed Target Visit 22 OT Problem 2 OT Problem #2 Impaired Coordination OT Goal 1 Goal 1. Patient to be able to complete the 9-hole peg test with the left hand in 45 seconds or less. --OT POC UPDATE 11/25/22-- 1. Progressing, continue goal ---OT POC UPDATE 12/23/22-- 1. Progressing, continue goal Target Visit 22 OT Problem 3 OT Problem #3 Impaired Strength
--- NOTE | 2022-12-23 14:18 | PTOPPROG ---
Assessment and note entered by Ana Red DPT Evaluation Information Assessment Status Progress Subjective Information The patient and her parents report she is continuing to make progress in therapy and has not been using her cane most of the time at home. Is doing stairs but has not yet done a full flight. Her parents report she is fearful of falling with stairs. Assessment PT Clinical Summary The patient has continued to make good progress in therapy. She reports she is not using an assistive device at home and has been able to do stairs but has yet to do a full flight at home. She demonstrates improved LE strength in all planes and improved 30 feet on the 2 minute walk test without a device. Due to her progress but continued weakness and difficulty with a full flight of stairs she will benefit from further therapy to safely return to full function. Plan of Care Interventions Gait Training,Manual Therapy,Neuro Re-education, Patient/Caregiver Education,Therapeutic Activities, Therapeutic Exercise PT Services Indicated Yes Treatment Frequency and 1 time a week for 4 weeks Duration These treatments will address the objective and functional deficits as defined above. The patient will be advanced safely and appropriately in order for the patient to progress towards his/her prior level of function. Additional exercises will be introduced and as well as a comprehensive home exercise program upon discharge, if needed, ?to ensure carryover of functional gains achieved in the clinic. This treatment plan has been reviewed and agreement upon by the patient.
--- NOTE | 2023-01-07 10:19 | PCPTNOTE ---
Patient called & cancelled scheduled appointment this date due to having another conflicting appointment.
--- NOTE | 2023-01-20 13:40 | OTOPDC ---
Assessment and note entered by Khanh Garcia, ALONZO/Mario, CHT Discharge Summary 01/20/23 Diagnosis CVA with left sided weakness Onset 09/23/22 Subjective Information Patient and her parents report she is making more progress with functional use of the left UE. Her dad reports she is getting stronger and improved coordination. She is back to functioning independently. They have to remind her to use the left hand at times, but overall she is not having any functional limitations with the left hand. Gross strength of the left UE improved from 4+/5 in the shoulder, 4+/5 for elbow flexion, and remained 4/5 for triceps (this is symmetrical to the right side) and 4/5 in the wrist. Left supervisor vine fruit farming decreased to 9 lbs. She completed the 9-hole peg test with the right hand in 42 seconds, compared to 80 seconds at the start of care. Reported Pain Level Pain Score 0: Self Report Assessment OT Clinical Summary Patient has been participating in outpatient OT with dx of CVA. She has attended 20 sessions focused on increased left UE strength and fine motor coordination. She has made excellent progress since the start of care. She no longer is having any functional limitations. They are independent with all HEPs. No further skilled OT indicated at this time. Plan of Care OT Services Indicated No
--- NOTE | 2023-01-20 14:27 | OPREHPOC ---
Outpatient Therapy Plan of Care This is a Multidisciplinary Plan of Care that may contain components documented by all disciplines (PT, OT, and ST.) PT Problem 1 PT Problem #1 Knowledge Deficit PT Goal 1 Goal 1. Patient will perform HEP with assist from parents as needed Target Visit 20 Progress Met PT Problem 2 PT Problem #2 Impaired Endurance PT Goal 1 Goal 1. Improve ambulation on 2 minute walk test to at least 300 feet with appropriate assistive device Target Visit 8 Progress Met PT Goal 2 Goal New goal 2. Improve ambulation on 2 minute walk test to at least 350 feet without device Target Visit 20 Progress Not Met PT Problem 3 PT Problem #3 Impaired Strength PT Goal 1 Goal 1. Improve LE MMT to at least 4/5 in all planes Target Visit 20 Progress Partially Met PT Problem 4 PT Problem #4 Impaired Functional ADLs PT Goal 1 Goal 1. Patient able to navigate 12 stairs with reciprocal pattern 2. Patient able to do household ambulation without assistive device Target Visit 20 Progress Partially Met OT Problem 1 OT Problem #1 Knowledge Deficit OT Goal 1 Goal 1. Patient/family to be independent with instructed materials. --OT POC UPDATE 11/25/22-- 1. Met, continue as HEP is progressed ---OT POC UPDATE 12/23/22-- 1. Met, continue as HEP is progressed ---OT D/C 01/20/23-- 1. Met Target Visit 22 OT Problem 2 OT Problem #2 Impaired Coordination OT Goal 1 Goal 1. Patient to be able to complete the 9-hole peg test with the left hand in 45 seconds or less. --OT POC UPDATE 11/25/22-- 1. Progressing, continue goal ---OT POC UPDATE 12/23/22-- 1. Progressing, continue goal ---OT D/C 01/20/23--
--- NOTE | 2023-01-20 14:27 | PTOPDC ---
Assessment and note entered by Ana Red DPT Evaluation Information Assessment Status Discharge Subjective Information Ali reports she is feeling ok. Has been doing stairs at home. Dad reports she has been doing pretty well getting around overall as well, may walk with heavier foot placement when fatigued. Reported Pain Level Pain Score 0: Self Report Pain Score 0: Self Report Assessment PT Clinical Summary The patient has reached a plateau in progress at this time. She demonstrates no strength or stair navigation changes and slightly worse distance on the 2 minute walk test. Due to these findings, discharge from therapy is recommended at this time . Patient is able to do all typical household activities. She has been educated to continue her HEP independently and follow up with PT and/or MD as needed. Plan of Care PT Services Indicated No
== END 2023-01-20 15:41 | disposition home or self-care (01) ==
LOC: ANHGOSHPT 14:15
PROVIDERS: PCP Family Medicine; Visit Provider Hospitalist
DX: Q90.9 Down syndrome, unspecified (principal); I63.9 Cerebral infarction, unspecified
CPT/HCPCS: 97110; 97112; 97116; 97162; 97166; 97530; 99199

== ENCOUNTER 2023-07-29 13:34 | Outpatient (CLI) | payer OTHER, MEDICAID, SELFPAY ==
[2023-07-30 19:23] LABS: Lupus dRVVT Screen 39 sec (< OR = 45); PTT-LA Screen 34 sec (< OR = 40)
[2023-07-31 11:48] LABS: Homocysteine 10.2 umol/L (<10.4)
[2023-08-01 06:23] LABS: Antithrombin III Activity 100 % normal (80-135)
[2023-08-05 17:58] LABS: Factor V (Leiden) Mutation NEGATIVE
== END 2023-07-29 13:35 | disposition home or self-care (01) ==
LOC: ANHLAB 13:37
PROVIDERS: PCP Family Medicine; Visit Provider Internal Medicine Hematology & Oncology
DX: D68.69 Other thrombophilia (principal); Q90.9 Down syndrome, unspecified; Z82.3 Family history of stroke
CPT/HCPCS: 36415; 81240; 81241; 83090; 85300; 85303; 85306; 85613; 85730; 86146

== ENCOUNTER 2023-09-02 00:33 | Day surgery (SDC) | payer OTHER, MEDICAID, SELFPAY ==
[2023-08-19 11:25] VITALS: BMI 18.5
--- NOTE | 2023-09-02 10:28 | WPDANESEPPF ---
Anes - Initial Pre Proc Eval Procedure: Operation Date: 09/02/23 13:30 Proposed Procedures p Esophagogastroduodenoscopy - Adarsh Pichardo MD Date/Time: 09/02/23 10:28 Surgeon: Adarsh Pichardo MD Pre Op Diagnosis: epigastric pain, nausea, anorexia Patient Data Age: 33 Gender: F Height: 1.75 m Weight: 57 kg Allergies Allergy/AdvReac Type Severity Reaction Status Date / Time tobramycin Allergy Mild Rash Verified 08/19/23 11:21 cefixime Allergy Unknown Unknown Verified 08/19/23 11:21 Home Medications Medication Instructions Recorded Confirmed Type ascorbic acid (vitamin C) 500 mg PO DAILY 09/27/22 08/19/23 History cholecalciferol (vitamin D3) 25 25 mcg PO DAILY 09/27/22 08/19/23 History mcg (1,000 unit) tablet cyanocobalamin (vitamin B-12) 1,000 tablet PO DAILY 09/27/22 08/19/23 History loratadine 10 mg tablet (Claritin) 10 mg PO DAILY 09/27/22 08/19/23 History aspirin 81 mg chewable tablet 81 mg PO DAILY@0800 #30 tabs 10/02/22 08/19/23 Rx (Children's Aspirin) levothyroxine 75 mcg tablet 75 mcg PO DAILY #90 tabs 01/20/23 08/19/23 Rx pantoprazole 40 mg tablet,delayed 40 mg PO BID #180 tabs 07/13/23 08/19/23 Rx release atorvastatin 40 mg tablet 40 mg PO DAILY #90 tabs 07/26/23 08/19/23 Rx ciprofloxacin HCl 0.3 % eye drops 1 drp EACH EYE DAILY PRN Eye 08/19/23 08/19/23 History irritation famotidine 40 mg tablet 40 mg PO BID 08/19/23 08/19/23 History magnesium 250 mg tablet 250 mg PO DAILY 08/19/23 08/19/23 History norethindrone (contraceptive) 0.35 0.35 mg PO DAILY 08/19/23 08/19/23 History mg tablet tobramycin 0.3 % eye ointment 1 applic EACH EYE DAILY PRN Eye 08/19/23 08/19/23 History (Tobrex) Irritation Patient hx anesthesia problems: none Family hx anesthesia problems: none Results Review: All pre-operative results and documents have been reviewed as part of the pre-operative evaluation. [facility] Past Medical History Medical History (Updated 09/02/23 @ 10:28 by Pete Funk DO) Down syndrome Duodenal atresia (~1991) GERD (gastroesophageal reflux disease) Hypothyroidism TIA (transient ischemic attack) Surgical History Surgical History History of placement of ear tubes (1995) History of tonsillectomy (1997) Family History Family History Mother Patient's mother is in good health Multiple sclerosis Bipolar disorder (manic depression) Father Hypertension Liver disease Sibling Multiple sclerosis Emphysema lung Crohn disease Social History Social History Social History: Surrogate medical decision maker: Chaya and Lemuel Cabrera, parents. Code status: Full code. Smoking status: Never smoker Second hand tobacco smoke exposure: No Alcohol intake: current Alcohol use details: very little Substance use: never Substance use type: does not use Other substance usage details: prescription medication as prescribed only Do You Feel Safe in your Home?: Yes Lack of Transportation: No Lack of Food: Never True Current Housing: I Have Housing Concerned About Future Housing: No Difficulty Paying Gas/Electric Bills: No Difficulty Paying for Meds: No Currently Unemployed: Decline to Answer Education: High School Diploma/GED Difficulty w/ Childcare or Family Care: No Living arrangements: with family Additional living arrangements comments: Lives with family in [place]. Additional occupation/education comments: Disabled. Spiritual care concerns: No Agree to blood products: Yes Anes - Eval Final PreProcedure Day of Procedure 09/02/23 10:28 Patient weight: normal Heart: regular rate and rhythm Lungs: clear to auscultation and normal air movement Airway: Mallampati scale class III Neurological: alert and oriented Last
[2023-09-02 12:37] VITALS: BP 136/83; PULSE 73; RESP 18; TEMP 36.6; O2SAT 99
[2023-09-02] MEDS: LACTATED RINGERS 1,000 ML 150 ML IV CONT (12:49)
--- NOTE | 2023-09-02 13:24 | PM.HPGS ---
History of Present Illness History of Present Illness Consent: Risks, benefits, and alternatives have been discussed and questions answered. Patient agrees to proceed with procedure. Chief complaint: epigastric pain, nausea, anorexia Narrative: Danette Cabrera is a 33 year old female with intermittent epigastric pain and less appetite but that has improved, using pepcid. Parents here, she has Down syndrome. Review of Systems Review of Systems: All systems reviewed & are unremarkable except as noted in HPI and below PMFSH Past Medical History Medical History (Updated 09/02/23 @ 10:28 by Pete Funk, ) Down syndrome Duodenal atresia (~1991) GERD (gastroesophageal reflux disease) Hypothyroidism TIA (transient ischemic attack) Surgical History Surgical History History of placement of ear tubes (1995) History of tonsillectomy (1997) Family History Family History Mother Patient's mother is in good health Multiple sclerosis Bipolar disorder (manic depression) Father Hypertension Liver disease Sibling Multiple sclerosis Emphysema lung Crohn disease Social History Social History Social History: Surrogate medical decision maker: Chaya and Lemuel Cabrera, parents. Code status: Full code. Smoking status: Never smoker Second hand tobacco smoke exposure: No Alcohol intake: current Alcohol use details: very little Substance use: never Substance use type: does not use Other substance usage details: prescription medication as prescribed only Do You Feel Safe in your Home?: Yes Lack of Transportation: No Lack of Food: Never True Current Housing: I Have Housing Concerned About Future Housing: No Difficulty Paying Gas/Electric Bills: No Difficulty Paying for Meds: No Currently Unemployed: Decline to Answer Education: High School Diploma/GED Difficulty w/ Childcare or Family Care: No Living arrangements: with family Additional living arrangements comments: Lives with family in [place]. Additional occupation/education comments: Disabled. Spiritual care concerns: No Agree to blood products: Yes Meds Home Medications and Allergies Home Medications Medication Instructions Recorded Confirmed Type ascorbic acid (vitamin C) 500 mg PO DAILY 09/27/22 08/19/23 History cholecalciferol (vitamin D3) 25 25 mcg PO DAILY 09/27/22 08/19/23 History mcg (1,000 unit) tablet cyanocobalamin (vitamin B-12) 1,000 tablet PO DAILY 09/27/22 08/19/23 History loratadine 10 mg tablet (Claritin) 10 mg PO DAILY 09/27/22 08/19/23 History aspirin 81 mg chewable tablet 81 mg PO DAILY@0800 #30 tabs 10/02/22 08/19/23 Rx (Children's Aspirin) levothyroxine 75 mcg tablet 75 mcg PO DAILY #90 tabs 01/20/23 08/19/23 Rx pantoprazole 40 mg tablet,delayed 40 mg PO BID #180 tabs 07/13/23 08/19/23 Rx release atorvastatin 40 mg tablet 40 mg PO DAILY #90 tabs 07/26/23 08/19/23 Rx ciprofloxacin HCl 0.3 % eye drops 1 drp EACH EYE DAILY PRN Eye 08/19/23 08/19/23 History irritation famotidine 40 mg tablet 40 mg PO BID 08/19/23 08/19/23 History magnesium 250 mg tablet 250 mg PO DAILY 08/19/23 08/19/23 History norethindrone (contraceptive) 0.35 0.35 mg PO DAILY 08/19/23 08/19/23 History mg tablet tobramycin 0.3 % eye ointment 1 applic EACH EYE DAILY PRN Eye 08/19/23 08/19/23 History (Tobrex) Irritation Allergies Allergy/AdvReac Type Severity Reaction Status Date / Time tobramycin Allergy Mild Rash Verified 08/19/23 11:21 cefixime Allergy Unknown Unknown Verified 08/19/23 11:21 Vital Signs Vital Signs - 24 hr 09/02/23 12:37 Temperature 97.8 F Pulse Rate 73 Respiratory Rate 18 Blood Pressure 136/83 Pulse Oximetry 99 Oxygen Delivery Room Air Exam Narrative: donw's syndrome Const:
[2023-09-02 13:37] VITALS: BP 88/57; PULSE 76; RESP 20; O2SAT 96
[2023-09-02 13:47] VITALS: BP 94/63; PULSE 81; RESP 20; O2SAT 98
[2023-09-02 13:57] VITALS: BP 101/65; PULSE 68; RESP 20; O2SAT 99
== END 2023-09-02 14:10 | disposition home or self-care (01) ==
PROVIDERS: PCP Family Medicine; Referring Provider Nurse Practitioner; Visit Provider Internal Medicine Gastroenterology
PROC: 0DJ08ZZ Inspection of Upper Intestinal Tract, Via Natural or Artificial Opening Endoscopic (ICD-10-PCS; CPT 43235; principal; 2023-09-02 13:30)
DX: K29.50 Unspecified chronic gastritis without bleeding (principal); E03.9 Hypothyroidism, unspecified; K21.9 Gastro-esophageal reflux disease without esophagitis; Q90.9 Down syndrome, unspecified; Z79.82 Long term (current) use of aspirin; Z98.890 Other specified postprocedural states; Z87.738 Personal history of other specified (corrected) congenital malformations of digestive system; Z86.73 Personal history of transient ischemic attack (TIA), and cerebral infarction without residual deficits
CPT/HCPCS: 43239; 88305; 88342; J2704; J7120

== ENCOUNTER 2023-10-21 07:30 | Outpatient (CLI) | payer OTHER, MEDICAID, SELFPAY ==
--- NOTE | ~2023-10-21 | NM_ITS ---
EXAM: NM gastric emptying study DATE: 10/21/2023 12:25 INDICATION: Nausea and epigastric pain TECHNIQUE: A gastric emptying study was performed using the methodology of Paul MAC, et al. J Nucl Med 2007; 48:568-572. The patient was given a meal consisting of 2 scrambled eggs labeled with 1.029 mCi Tc-99m sulfur colloid, 2 slices of toast, two packages of jam, and approximately 120 mL of water . Simultaneous anterior and posterior 1-min images of the abdomen were obtained with the patient supi ne at multiple time points over a total period of 4 hours. The geometric mean of anterior and posteri or views was determined, and the percentage retention was calculated for each time point. COMPARISON: None. FINDINGS: Gastric retention of the radiotracer-labeled meal was 71%, 58%, and 17% at the 1-hour, 2-hour, and 4- hour time points, respectively. With this technique, apparent rapid gastric emptying is suggested by <30% gastric retention at 1 hour. Delayed gastric emptying is defined by gastric retention of >90% at 1 hour, >60% retention at 2 hours, or >10% retention at 4 hours. IMPRESSION: 1. Delayed gastric emptying. Reviewed, dictated and finalized at location A.
== END 2023-10-21 07:31 | disposition home or self-care (01) ==
LOC: ANHIMG 07:34
PROVIDERS: PCP Family Medicine; Visit Provider Nurse Practitioner
DX: K30 Functional dyspepsia (principal)
CPT/HCPCS: 78264; A9541